=== PATIENT | female | born 1945 | race Caucasian/White ===

== ENCOUNTER 2019-03-11 19:04 | Inpatient (IN) | payer MEDICARE ==
[2019-03-11 23:22] VITALS: BP 121/84
[2019-03-11] MEDS ORDERED: Non-Formulary Item 1 EA (Diclofenac Sodium [Voltaren] 100 GM) TP PRN (23:53)
[2019-03-12] MEDS ORDERED: Non-Formulary Item 1 EA (Cholecalciferol (Vitamin D3) [Vitamin D3] 5,000 UNIT) PO SCH (09:00)
[2019-03-12] MEDS ORDERED: Non-Formulary Item 1 EA (Duloxetine Hcl [Cymbalta] 20 MG) PO SCH (09:00)
[2019-03-12] MEDS: Apixaban 5 MG TABLET PO SCH ×2 (09:54→17:14)
[2019-03-12] MEDS: Potassium Chloride 10 mEq ER Tab PO SCH (09:55)
[2019-03-12] MEDS: Aspirin 81mg Chewable Tab PO SCH (09:55)
[2019-03-12] MEDS: Diltiazem CD 120 mg 24H PO SCH (09:56)
--- NOTE | 2019-03-12 18:13 | History & Physical ---
ADMIT DATE: PATIENT IDENTIFICATION: This is a 73-year-old female. REQUESTING PHYSICIAN: Rory Ledbetter M.D. REASON: Medical management. CHIEF COMPLAINT: "I am sleepy." HISTORY OF PRESENT ILLNESS: A 73-year-old resident of longterm, brought into initially at [facility] after the patient was noted to have aggressive behavior and agitation. After being cleared by emergency room MD at [facility], the patient is now being transferred to [facility] for psychiatric illness. PAST MEDICAL HISTORY: Remarkable for: 1. Hypertension. 2. Chronic Afib. 3. DJD. 4. Psychotic disorder. 5. Asthma. 6. Osteoporosis. MEDICATIONS: At the time of transfer has been reviewed and reconciled appropriately. ALLERGIES: The patient is allergic to PENICILLIN and SULFA. SOCIAL HISTORY: She is a resident of [facility]. The patient has a history of smoking cigarette. No alcohol or drug use. FAMILY HISTORY: As per the patient's account unknown. REVIEW OF SYSTEMS: The patient denies any headache, blurred vision, double vision, dysphagia, odynophagia, runny nose, stuffy nose, fever, chills, cough, chest pain, shortness of breath, palpitation, dizziness, nausea, vomiting, diarrhea, dysuria, hematuria, hematochezia or melena. No seizure or syncopal episode. The patient is incontinent of urine. PHYSICAL EXAMINATION: GENERAL: The patient is alert, awake, oriented, lying in the bed without any acute distress. VITAL SIGNS: Temperature 97.8, pulse is 82, respiratory rate 20, blood pressure 110/80. SKIN: Warm to touch, adequate skin turgor. HEENT: Normocephalic, atraumatic. Extraocular muscles are intact. Tongue is pink and coated. Poor dentition noted. NECK: Supple, no JVD, no hepatojugular reflex. No lymphadenopathy, thyromegaly or carotid bruit. HEART: Both heart sounds are irregularly irregular. Grade 2/6 systolic murmur noted. CHEST AND LUNGS: Equal in expansion, no expiratory wheezing. ABDOMEN: Soft, no guarding, no rigidity. Bowel sounds present. No palpable mass. EXTREMITIES: No edema, no cyanosis, no calf tenderness. Peripheral pulses are +1. Diffuse osteoarthritic changes noted. NEUROLOGIC: Alert, awake and oriented to time, place, person, moving upper and lower extremities without any difficulty. AVAILABLE DIAGNOSTIC DATA: Performed at [facility]; white count 10.1, hemoglobin 14.8, platelet count of 219, potassium 3.3, BUN and creatinine is normal. Other labs, liver functions are within normal limits. Hemoglobin A1c is currently pending. Chest x-ray is not available. CLINICAL IMPRESSION: 1. Psychotic disorder exacerbation. 2. Hypokalemia. 3. Chronic atrial fibrillation. 4. Hypertension. 5. Degenerative joint disease. 6. Fall risk. 7. Osteoporosis. 8. Asthma, chronic obstructive pulmonary disease. PLAN: 1. Psychiatric evaluation and management deferred to psychiatrist. 2. Rate control. 3. Anticoagulation therapy. 4. Fall precaution. 5. Nutritional support. 6. Dysphagia diet. 7. General nursing care. 8. Appropriate home medication reconciliation. 9. We will continue to follow this patient during the stay in the hospital. I sincerely thank you, Dr. Rory Ledbetter for giving me the opportunity to participate in patient of yours. JOB# [id number]
[2019-03-13] MEDS: Apixaban 5 MG TABLET PO SCH ×2 (09:34→17:01)
[2019-03-13] MEDS: Aspirin 81mg Chewable Tab PO SCH (09:34)
[2019-03-13] MEDS: Potassium Chloride 10 mEq ER Tab PO SCH (09:36)
[2019-03-13] MEDS: Diltiazem CD 120 mg 24H PO SCH (09:45)
--- NOTE | 2019-03-13 10:23 | Psychiatric Evaluation ---
DATE OF SERVICE: AGE: 73 SEX: Female. PHYSICIAN: Dr. Ledbetter. CHIEF COMPLAINT: "A lady is harrassing me." HISTORY OF PRESENT ILLNESS: The patient is a 73-year-old female who lives in a residential. The patient said that a lady in the residential has been harassing her. The patient has been increasingly paranoid and easily agitated and angry and in irritable mood. She also was verbally abusive and aggressive and striking out at staff and other residents in the facility where she lives and she was not able to follow directions and was resisting care and she was placed on a 5150 hold for dangerous to others. The patient also was refusing to be cleaned and changed when it is necessary and also was urinating on herself and personal hygiene much deteriorated. Also, she was angry with the staff when they were trying to help her with her ADLs and to tell her what to do, answering them "you have no right to tell me what to do." PAST PSYCHIATRIC HISTORY: The patient has history of depression and has been taking Cymbalta. Also, has history of dementia that seems to be mild to moderate. PAST MEDICAL HISTORY: The patient has atrial fibrillation. She also has hypertension, COPD and chronic back pain. The patient also has a history of falling. SOCIAL HISTORY: The patient lives in a residential. The patient said that she has one daughter, but they do not talk and are not in contact with each other and the patient is upset with her daughter. No communication. The patient is . The patient denies any alcohol or street drug use, but she smokes about more than 1 pack of cigarette per day. ALLERGIES: No known allergies. PAST PSYCHIATRIC HISTORY: The patient denies. MENTAL STATUS EXAMINATION: The patient appears her stated age. Anxious. Cooperative. Mood seems to be depressed. Thought processes are circumstantial, but no flight of ideas. The patient denies any auditory or visual hallucinations, but seems to be suspicious and paranoid. Poor insight and poor judgment. Seems to be of average intelligence based on her verbal ability. ASSESSMENT: PRIMARY DIAGNOSIS: Unspecified psychosis. MEDICAL DIAGNOSES: Diabetes mellitus. Hypertension. Chronic obstructive pulmonary disease. Atrial fibrillation. TREATMENT PLAN: We will continue Paxil same dose. We will add Seroquel 25 mg 3 times a day and we will adjust the dose. ESTIMATED LENGTH OF STAY: 5-7 days. PATIENT'S STRENGTHS AND WEAKNESSES: The patient's strength is not clear at this time. Weakness is her ineffective coping and her irritability and paranoia. AFTER DISCHARGE PLAN: The patient will return to the residential unless placement will be an issue. Outpatient treatment and followup will continue as an outpatient. CRITERIA FOR DISCHARGE: The patient was not agitated and will stabilize psychotropic medications and will establish outpatient treatment plans. [facility]# [id number]
--- NOTE | 2019-03-13 23:00 | Progress Notes ---
DATE: 03/13/2019 SUBJECTIVE: The patient seen and examined. The patient is lying in the bed. The patient gets agitated at times. On further questioning, the patient denies any chest pain, abdominal pain, nausea, vomiting, diarrhea. PHYSICAL EXAMINATION: VITAL SIGNS: See nurse's note. HEENT: No facial asymmetry. Poor dentition noted. NECK: Supple, no JVD. HEART: Irregularly irregular. CHEST: Lung equal in expansion, no expiratory wheezing. ABDOMEN: Soft. Bowel sounds present. No palpable mass. EXTREMITIES: No edema. MEDICATION: Administration record is reviewed. CLINICAL IMPRESSION 1. Chronic atrial fibrillation. 2. Hypertension. 3. Chronic obstructive pulmonary disease. 4. Degenerative joint disease. 5. Osteoporosis. 6. Fall risk. 7. Psychotic disorder exacerbation. PLAN: 1. Anticoagulation therapy with Eliquis. 2. Cardizem. 3. Monitor blood pressure. 4. Fall precautions. 5. Nutritional support. 6. P.r.n. inhalation therapy. 7. Psych medication and Psych followup. 8. General nursing care. 9. Care plan reviewed and discussed with the staff. JOB# [id number]
--- NOTE | 2019-03-14 01:34 | Progress Notes ---
DATE: SUBJECTIVE: Chart was reviewed and the patient interviewed. Also discussed the patient's condition with the staff and reviewed records and labs. The patient is still easily agitated and cursing staff and verbally abusive. The patient also is still in angry and irritable mood. She also still has difficulty following directions and she seems to be confused and only oriented to her name. On the other hand, the patient seems to be slightly calmer since she started on Seroquel and she seems to be less impulsive, but at the same time slightly sleepy. ASSESSMENT: The patient is still agitated, but slightly calmer. TREATMENT PLAN: Continue to monitor behavior and the condition closely. Also, continue to work on her poor impulse control and adjusting psychotropic medications. [facility]# [id number]
[2019-03-14] MEDS: Aspirin 81mg Chewable Tab PO SCH (10:00)
[2019-03-14] MEDS: Potassium Chloride 10 mEq ER Tab PO SCH (10:00)
[2019-03-14] MEDS: Apixaban 5 MG TABLET PO SCH ×2 (10:00→16:54)
[2019-03-14] MEDS: Venelex 60gm Tube TP SCH (10:00)
[2019-03-14] MEDS: Diltiazem CD 120 mg 24H PO SCH (10:20)
--- NOTE | 2019-03-14 10:21 | Progress Notes ---
DATE: SUBJECTIVE: Chart reviewed and the patient interviewed. Also discussed the patient's condition with the staff and reviewed records and labs. The patient is still impulsive and in angry mood. The patient also is still confused and easily agitated. The patient also is still verbally abusive and cursing staff, although it seems to be slightly less since I started her on Seroquel. The patient also is still feeling hopeless and wants to be left alone at times. Otherwise, the patient is compliant with taking her medications with no side effects. ASSESSMENT: The patient is still in angry mood and impulsive. TREATMENT PLAN: Continue to monitor behavior and condition closely. Also, continue Cymbalta and Seroquel at same dose and work on behavioral modification and her impulsivity. JOB# [id number]
--- NOTE | 2019-03-14 11:38 | Progress Notes ---
DATE: 03/14/2019 SUBJECTIVE: The patient is seen and examined. The patient is lying in the bed, easy to awake. The patient denies today any chest pain, shortness of breath, palpitation, dizziness, nausea. She wants to go home today. PHYSICAL EXAMINATION: VITAL SIGNS: Temperature 97.9, pulse is 70, respiratory rate is 20, blood pressure 116/76. HEENT: Unremarkable. Multiple absent teeth. Tongue was pink and coated. NECK: Supple. No JVD, no hepatojugular reflux, no lymphadenopathy. HEART: Both heart sounds are irregularly irregular. Grade 2/6 systolic murmur noted. CHEST AND LUNGS: Equal in expansion, no wheezing. ABDOMEN: Soft, protuberant. Bowel sounds are present. EXTREMITIES: No edema. AVAILABLE DIAGNOSTIC DATA: None for my review. CLINICAL IMPRESSION: 1. Psychiatric disorder exacerbation, clinically improving. 2. Chronic atrial fibrillation, on long-term anticoagulation therapy. 3. Hypertension. 4. Degenerative joint disease. 5. Chronic obstructive pulmonary disease. 6. Obesity. 7. Fall risk. PLAN: 1. Psychiatric evaluation and management deferred to psychiatrist. 2. Rate control with Cardizem. 3. Eliquis. 4. Fall precautions. 5. Nutritional support. 6. General nursing care. 7. Continue current medication as prescribed. 8. Symptoms management. 9. Medication management. 10. Care plan reviewed and discussed with the staff. JOB# [id number]
[2019-03-15] MEDS: Diltiazem CD 120 mg 24H PO SCH (08:57)
[2019-03-15] MEDS: Potassium Chloride 10 mEq ER Tab PO SCH (08:57)
[2019-03-15] MEDS: Apixaban 5 MG TABLET PO SCH ×2 (08:57→17:18)
[2019-03-15] MEDS: Aspirin 81mg Chewable Tab PO SCH (08:57)
[2019-03-15] MEDS: Venelex 60gm Tube TP SCH (08:58)
--- NOTE | 2019-03-16 04:21 | Progress Notes ---
DATE: 03/15/2019 SUBJECTIVE: Chart reviewed and patient interviewed. Also discussed patient's condition with the staff and reviewed records and labs. The patient still has angry outburst and she is still in irritable and angry mood. The patient also is angry with her roommate and arguments with her for no reason. The patient also is paranoid and is still severely anxious. Otherwise, patient is compliant with taking her medications with no side effects of medications. ASSESSMENT: The patient is still restless and she is still agitated. TREATMENT PLAN: Continue to monitor her behavior and her condition closely. Also, continue to work on her poor impulse control and irritability. Also, patient continued to take Ativan on a p.r.n. basis, but also continue Seroquel and Cymbalta same dose and continue to followup. JOB# [id number]
[2019-03-16] MEDS: Diltiazem CD 120 mg 24H PO SCH (10:02)
[2019-03-16] MEDS: Aspirin 81mg Chewable Tab PO SCH (10:03)
[2019-03-16] MEDS: Apixaban 5 MG TABLET PO SCH ×2 (10:03→16:51)
[2019-03-16] MEDS: Potassium Chloride 10 mEq ER Tab PO SCH (10:04)
[2019-03-16] MEDS: Venelex 60gm Tube TP SCH (10:06)
--- NOTE | 2019-03-16 21:16 | Progress Notes ---
DATE: 03/16/2019 SUBJECTIVE: Chart was reviewed and the patient interviewed. Also discussed the patient's condition with the staff and reviewed records and labs. The patient is still having episodes of anger and irritability. The patient also still needs redirections. The patient seems to be drowsy and slightly sleepy yesterday and this morning. She also still needs a lot of prompt instructions for ADLs. Otherwise, the patient is compliant with taking her medications and no side effects of medications except the patient seems to be drowsy and sleepy. ASSESSMENT: The patient is still suspicious and needs close monitoring. TREATMENT PLAN: Continue to monitor her behavior and condition closely. Also, decrease Seroquel to 25 mg twice a day and continue to follow up. [facility]# [id number]
[2019-03-17] MEDS: Aspirin 81mg Chewable Tab PO SCH (08:49)
[2019-03-17] MEDS: Diltiazem CD 120 mg 24H PO SCH (08:50)
[2019-03-17] MEDS: Apixaban 5 MG TABLET PO SCH ×2 (08:50→16:31)
[2019-03-17] MEDS: Potassium Chloride 10 mEq ER Tab PO SCH (08:50)
--- NOTE | 2019-03-17 09:47 | Progress Notes ---
DATE: SUBJECTIVE: Chart reviewed and the patient interviewed. Also discussed the patient's condition with the staff and reviewed records and labs. The patient still have angry outbursts at times. The patient also is still anxious and is still in a depressed mood. She also is still having mood swings. She also tends to isolate herself and interacting minimally with others and wants to be left alone. She also still needs lots of redirections at times. Otherwise, the patient is compliant with taking her medications and no side effects of medications. ASSESSMENT: The patient is still agitated and she still seems to be psychotic and preoccupied. TREATMENT PLAN: Continue to monitor her behavior and her condition closely. Also, continue adjusting psychotropic medications and work on behavioral modification. [facility]# [id number]
[2019-03-17] MEDS: Venelex 60gm Tube TP SCH (14:31)
[2019-03-18] MEDS: Diltiazem CD 120 mg 24H PO SCH (08:22)
[2019-03-18] MEDS: Potassium Chloride 10 mEq ER Tab PO SCH (08:22)
[2019-03-18] MEDS: Aspirin 81mg Chewable Tab PO SCH (08:23)
[2019-03-18] MEDS: Apixaban 5 MG TABLET PO SCH ×2 (08:24→16:57)
[2019-03-18] MEDS: Venelex 60gm Tube TP SCH (08:33)
--- NOTE | 2019-03-19 04:53 | Progress Notes ---
DATE: SUBJECTIVE: Chart was reviewed and the patient interviewed. Also discussed the patient's condition with the staff and reviewed records and labs. The patient still has angry outbursts, but seems to be slightly less than before. The patient also is still obsessed with her roommate. The patient also still has severe anxiety and still has severe mood swings and restlessness. Otherwise, the patient is compliant with taking her medications. There were no side effects of Cymbalta or Seroquel. ASSESSMENT: The patient is still psychotic and is still agitated and can be dangerous to others. TREATMENT PLAN: Continue monitoring her behavior and her condition closely. Also, continue adjusting psychotropic medications and working on behavioral modification. [facility]# [id number]
[2019-03-19] MEDS: Aspirin 81mg Chewable Tab PO SCH (08:35)
[2019-03-19] MEDS: Potassium Chloride 10 mEq ER Tab PO SCH (08:35)
[2019-03-19] MEDS: Diltiazem CD 120 mg 24H PO SCH (08:36)
[2019-03-19] MEDS: Apixaban 5 MG TABLET PO SCH ×2 (08:37→16:44)
--- NOTE | 2019-03-19 09:07 | Progress Notes ---
DATE: 03/19/2019 SUBJECTIVE: Chart reviewed and the patient interviewed. Also discussed the patient's condition with the staff and reviewed records and labs. The patient continued to be impulsive and confused. The patient also is still in angry mood and still has angry outburst. The patient also is still easily agitated and easily irritable. On the other hand, she still seems to be depressed at times and tends to isolate herself. Otherwise, no side effects of medications. ASSESSMENT: The patient is still confused and agitated. TREATMENT PLAN: Continue to monitor her behavior and her condition closely. Also, we will increase Seroquel to 37.5 mg twice a day and Cymbalta 30 mg twice a day and we will continue to follow up closely. [facility]# [id number]
--- NOTE | 2019-03-19 10:26 | History & Physical ---
ADMIT DATE: IDENTIFICATION: This is a 73-year-old female. SUBJECTIVE: The patient was seen and examined. The patient was lying in the bed. The patient denies any chest pain, shortness of breath, palpitation, dizziness, nausea or vomiting. Medication admission record has been reviewed. PHYSICAL EXAMINATION: VITAL SIGNS: Temperature 97.0, pulse is 88, respiratory rate 18, blood pressure 116/68. HEENT: No facial asymmetry. Poor dentition noted. NECK: Supple, no JVD. HEART: Both heart sounds are regular. CHEST AND LUNGS: Equal in expansion, no expiratory wheezing. ABDOMEN: Soft. Bowel sounds present. No palpable mass. EXTREMITIES: No edema. CLINICAL IMPRESSION: 1. Psychiatric disorder. 2. Hypertension. 3. Urinary tract infection. 4. Degenerative joint disease. 5. Obesity. 6. Menopausal. 7. History of cerebrovascular accident. 8. Fall risk. 9. Obesity. 10. Chronic obstructive pulmonary disease. 11. Chronic atrial fibrillation. PLAN: 1. Psychotic evaluation and management deferred to psychiatrist. 2. Monitor blood pressure. 3. Fall precautions. 4. Anticoagulation therapy. 5. Rate control. 6. General nursing care. 7. Complete the course of antibiotic for urinary tract infection. 8. We will continue to follow this patient during the stay in the hospital. JOB# [id number]
[2019-03-19] MEDS: Venelex 60gm Tube TP SCH (17:20)
--- NOTE | 2019-03-20 07:47 | Progress Notes ---
DATE: 03/20/2019 SUBJECTIVE: Chart was reviewed and the patient interviewed. Also discussed the patient's condition with the staff and reviewed records and labs. The patient continued to be confused and impulsive. The patient also is still restless and is still angry mood and demanding at times. She also is still easily agitated and easily irritable. On the other hand, slightly easier to redirect her. ASSESSMENT: The patient is still agitated and is still psychotic. TREATMENT PLAN: Continue monitoring her behavior and her condition closely. Also, continue Seroquel 37.5 mg twice a day. Also, continue to work on her poor impulse control and her irritability. JOB# [id number]
[2019-03-20] MEDS: Potassium Chloride 10 mEq ER Tab PO SCH (08:45)
[2019-03-20] MEDS: Aspirin 81mg Chewable Tab PO SCH (08:46)
[2019-03-20] MEDS: Apixaban 5 MG TABLET PO SCH ×2 (08:46→16:19)
[2019-03-20] MEDS: Diltiazem CD 120 mg 24H PO SCH (08:47)
[2019-03-20] MEDS: Venelex 60gm Tube TP SCH (18:20)
--- NOTE | 2019-03-20 22:22 | Progress Notes ---
DATE: 03/20/2019 SUBJECTIVE: The patient seen and examined. The patient is lying in the bed. The patient has no chest pain, shortness of breath, palpitation, or dizziness. OBJECTIVE: VITAL SIGNS: Temperature 97.8, pulse 85, respiratory rate 18, blood pressure 105/65. HEENT: Poor dentition. NECK: Supple, no JVD. HEART: Regular. LUNGS: Clear to auscultate. ABDOMEN: Soft. Bowel sounds present. No palpable mass. EXTREMITIES: No edema. NEUROLOGIC: Alert, awake, follows command. Decreased power throughout the upper and lower extremity. CLINICAL IMPRESSION: 1. Hypertension. 2. Chronic pain. 3. Hyperlipidemia. 4. Chronic atrial fibrillation. 5. Long-term anticoagulation therapy. 6. Degenerative joint disease. 7. Psychotic disorder. PLAN: 1. Psychotic evaluation and management deferred to psychiatrist. 2. Antihypertensive medicine. 3. Antiplatelet therapy. 4. Rate control. 5. General nursing care. 6. Fall precaution. 7. Monitor labs. 8. Follow consult recommendation. 9. Care plan reviewed and discussed with staff. JOB# [id number]
--- NOTE | 2019-03-21 09:17 | Progress Notes ---
DATE: SUBJECTIVE: The patient is still confused and is still in angry and irritable mood and impulsive. The patient also is still agitated when awake and she seems to be less sedated, but still in angry and confused. The patient also is still restless. She also is having difficulty at times following staff directions. Otherwise, the patient is compliant with taking her medications with no side effects to all medications. ASSESSMENT: The patient is still confused and psychotic. TREATMENT PLAN: Continue Seroquel 37.5 mg twice a day and continue to work on her anger and irritability and continue to follow up closely. JOB# [id number]
[2019-03-21] MEDS: Venelex 60gm Tube TP SCH (09:20)
[2019-03-21] MEDS: Diltiazem CD 120 mg 24H PO SCH (09:21)
[2019-03-21] MEDS: Apixaban 5 MG TABLET PO SCH ×2 (09:21→16:16)
[2019-03-21] MEDS: Aspirin 81mg Chewable Tab PO SCH (09:21)
[2019-03-21] MEDS: Potassium Chloride 10 mEq ER Tab PO SCH (09:22)
--- NOTE | 2019-03-21 10:27 | Progress Notes ---
DATE: 03/21/2019 SUBJECTIVE: The patient seen and examined. The patient is lying in the bed. The patient currently denies any chest pain, shortness of breath, palpitation, dizziness, nausea or vomiting. PHYSICAL EXAMINATION: VITAL SIGNS: Temperature 98.4, pulse is 65, respiratory rate 19, blood pressure 115/67. HEENT: No facial asymmetry. Multiple absent teeth noted. NECK: Supple. No JVD. HEART: Regular. CHEST AND LUNGS: Equal in expansion, no expiratory wheezing. ABDOMEN: Soft. Bowel sounds present. No palpable mass. EXTREMITIES: No edema. NEUROLOGIC: Nonfocal except decreased power throughout the upper and lower extremity. CLINICAL IMPRESSION: 1. Hypertension. 2. Chronic atrial fibrillation. 3. Degenerative joint disease. 4. Psychotic disorder. 5. Obesity. 6. Fall risk. 7. Decline in self-care and mobility. PLAN: 1. Fall precautions. 2. Nutritional support. 3. Rate control. 4. Anticoagulation therapy. 5. General nursing care. 6. Medication management. 7. Symptoms management. 8. Care plan reviewed and discussed with staff. JOB# [id number]
[2019-03-22] MEDS: Diltiazem CD 120 mg 24H PO SCH (08:11)
[2019-03-22] MEDS: Aspirin 81mg Chewable Tab PO SCH (08:13)
[2019-03-22] MEDS: Apixaban 5 MG TABLET PO SCH ×2 (08:13→16:10)
[2019-03-22] MEDS: Potassium Chloride 10 mEq ER Tab PO SCH (08:15)
[2019-03-22] MEDS: Venelex 60gm Tube TP SCH (14:58)
[2019-03-23] MEDS: Diltiazem CD 120 mg 24H PO SCH (09:00)
[2019-03-23] MEDS: Venelex 60gm Tube TP SCH (09:00)
[2019-03-23] MEDS: Apixaban 5 MG TABLET PO SCH ×2 (09:00→18:06)
[2019-03-23] MEDS: Potassium Chloride 10 mEq ER Tab PO SCH (09:00)
[2019-03-23] MEDS: Aspirin 81mg Chewable Tab PO SCH (10:50)
--- NOTE | 2019-03-23 18:15 | Progress Notes ---
DATE: SUBJECTIVE: Chart reviewed and the patient interviewed. Also, discussed the patient's condition with the staff and reviewed records and labs. The patient continued to be impulsive and angry. The patient also is still argumentative and confused. The patient also is still easily agitated and easily irritable, but at the same time, she seems to be more alert today. ASSESSMENT: The patient is still confused and psychotic. TREATMENT PLAN: Continue Seroquel and Cymbalta same dose. Also, continue monitoring her behavior and condition closely and continue to follow up. JOB# [id number]
--- NOTE | 2019-03-23 19:21 | Progress Notes ---
DATE: 03/23/2019 DATE: 03/23/2019 SUBJECTIVE: Chart was reviewed and the patient interviewed. Also discussed the patient's condition with the staff and reviewed records and labs. The patient seems to be depressed. The patient also is isolative and is withdrawn. She is also interacting minimally with others. She also seems to be confused. Otherwise, the patient seems to be less agitated and less irritable and easier to redirect her. ASSESSMENT: The patient is still depressed, but seems to be less agitated. TREATMENT PLAN: Continue to monitor behavior and condition closely. Also, continue adjusting psychotropic medications and work on behavioral modification. JOB# [id number]
--- NOTE | 2019-03-23 21:24 | Progress Notes ---
DATE: 03/23/2019 SUBJECTIVE: The patient seen and examined. The patient is lying in the bed. The patient currently denies any chest pain, shortness of breath, palpitation, dizziness, nausea, vomiting, or headache. The patient wants to go home. PHYSICAL EXAMINATION: VITAL SIGNS: Temperature 98.6, pulse is 91, respiratory rate 20, blood pressure 120/58. HEENT: No facial asymmetry. Multiple absent teeth noted. Poor dentition noted. NECK: Supple, no JVD. HEART: Both heart sounds are regular. CHEST AND LUNGS: Equal in expansion, no expiratory wheezing. ABDOMEN: Soft. Bowel sounds present. No palpable mass. EXTREMITIES: No edema. CLINICAL IMPRESSION 1. Chronic atrial fibrillation. 2. Long-term anticoagulation therapy. 3. Hypertension. 4. Degenerative joint disease. 5. Osteoporosis. 6. Obesity. 7. Psychotic disorder. 8. Fall risk. 9. Decline in self-care and mobility. PLAN: 1. Antihypertensive medicine. 2. Rate control. 3. Fall precaution. 4. Psych medication. 5. Psych followup. 6. Nutritional support. 7. Fall precaution. 8. General nursing care. 9. Care plan reviewed and discussed with staff. JOB# [id number]
[2019-03-24] MEDS: Venelex 60gm Tube TP SCH (09:00)
[2019-03-24] MEDS: Apixaban 5 MG TABLET PO SCH ×2 (09:27→18:27)
[2019-03-24] MEDS: Aspirin 81mg Chewable Tab PO SCH (09:29)
[2019-03-24] MEDS: Potassium Chloride 10 mEq ER Tab PO SCH (09:29)
[2019-03-24] MEDS: Diltiazem CD 120 mg 24H PO SCH (09:29)
--- NOTE | 2019-03-24 18:58 | Progress Notes ---
DATE: 03/24/2019 SUBJECTIVE: Chart was reviewed and the patient interviewed. Also discussed the patient's condition with the staff and reviewed records and labs. The patient remains in a depressed mood. The patient also is less agitated, but she is still isolative. The patient also easier to redirect her. The patient is compliant with taking her medications, have no side effects of medications. ASSESSMENT: The patient is still isolated and is still depressed. TREATMENT PLAN: Continue monitoring her behavior and condition closely. Also, continue current psychotropic medications and continue to work on her ineffective coping. JOB# [id number]
[2019-03-25] MEDS: Aspirin 81mg Chewable Tab PO SCH (09:14)
[2019-03-25] MEDS: Potassium Chloride 10 mEq ER Tab PO SCH (09:14)
[2019-03-25] MEDS: Apixaban 5 MG TABLET PO SCH (09:14)
[2019-03-25] MEDS: Diltiazem CD 120 mg 24H PO SCH (09:16)
[2019-03-25] MEDS: Venelex 60gm Tube TP SCH (09:29)
--- NOTE | 2019-03-26 00:45 | Progress Notes ---
DATE: 03/25/2019 SUBJECTIVE: The patient was seen and examined. The patient is lying in the bed. The patient states that she wants to go home. The patient currently has no chest pain, short of breath, palpitation, dizziness, nausea or vomiting. PHYSICAL EXAMINATION: VITAL SIGNS: Temperature 98.7, pulse is 100, respiratory rate is 20, blood pressure 132/66. SKIN: Warm to touch. HEENT: No facial asymmetry. Multiple absent teeth noted. Tongue was pink and coated. No oral lesion. NECK: Supple, no JVD, no lymphadenopathy or thyromegaly. HEART: Both heart sounds are irregularly irregular. CHEST AND LUNGS: Equal in expansion, no expiratory wheezing. ABDOMEN: Soft. Bowel sounds present. No palpable mass. EXTREMITIES: No edema, no calf tenderness. MEDICATIONS: Admission record has been reviewed. CLINICAL IMPRESSION 1. Chronic atrial fibrillation. 2. Hypertension. 3. Obesity. 4. Degenerative joint disease. 5. Psychiatric disorder. 6. High risk for fall. PLAN: 1. Antihypertensive medicine. 2. Rate control. 3. Anticoagulation therapy. 4. Fall precautions. 5. General nursing care. 6. Psych medication. 7. Psych followup. 8. Nutritional support. 9. Care plan reviewed and discussed with staff. JOB# [id number]
== END 2019-03-25 15:30 | DRG 885 ==
LOC: GERO 22:37
PROVIDERS: ADMIT Psychiatry & Neurology Psychiatry; ATTEND Psychiatry & Neurology Psychiatry
DX: F23 Brief psychotic disorder (principal); I48.20 Chronic atrial fibrillation, unspecified; Z68.41 Body mass index [BMI] 40.0-44.9, adult; I10 Essential (primary) hypertension; E11.9 Type 2 diabetes mellitus without complications; J44.9 Chronic obstructive pulmonary disease, unspecified; M19.90 Unspecified osteoarthritis, unspecified site; E87.6 Hypokalemia; E66.9 Obesity, unspecified; M54.9 Dorsalgia, unspecified; G89.29 Other chronic pain; M81.0 Age-related osteoporosis without current pathological fracture; Z88.0 Allergy status to penicillin; Z88.2 Allergy status to sulfonamides; Z91.81 History of falling; Z79.01 Long term (current) use of anticoagulants; Z78.0 Asymptomatic menopausal state
CPT/HCPCS: 83036-90; 97530; X3904; Z7610